=== PATIENT | male | born 2000 | race Two or more races ===

== ENCOUNTER 2023-10-27 13:20 | Outpatient (REF) | payer OTHER, SELFPAY ==
--- NOTE | ~2023-10-27 | MR_ITS ---
EXAMINATION: MR SHOULDER WITHOUT CONTRAST, RIGHT CLINICAL INFORMATION: Shoulder pain, injury. COMPARISON: None available. TECHNIQUE: MRI of the shoulder without contrast was performed on a high-field scanner. FINDINGS: ROTATOR CUFF: Supraspinatus, infraspinatus, teres minor are intact. Possible mild distal subscapularis tendinosis. No transverse tear or retraction. No muscle atrophy or fatty infiltration. BICEPS: Normal. CORACOACROMIAL ARCH: The undersurface of the acromion is curved with no subacromial spur. Mild acromioclavicular arthritis. LABRUM/CAPSULE: Increased T2 signal in the posterior labrum, consistent with a labral tear. Intermediate signal in the superior labrum, with linear configuration, which could reflect a tear; however, this is not definitive. GLENOHUMERAL JOINT/MARROW: No fracture. No aggressive marrow replacing lesion. Small joint fluid. Mild strandy signal changes in the rotator interval, could reflect mild synovitis. MR/MR shoulder RT wo con IMPRESSION: 1. Possible mild distal subscapularis tendinosis. No evidence of rotator cuff tear. 2. Posterior labral tear. Possible superior labral tear. 3. Mild acromioclavicular arthritis. 4. Possible mild synovitis in the rotator interval.
== END 2023-10-27 13:21 | disposition home or self-care (01) ==
LOC: HO.MRI 13:20
PROVIDERS: PCP Family Medicine Sports Medicine; Visit Provider Family Medicine Sports Medicine
DX: M25.511 Pain in right shoulder (principal)
CPT/HCPCS: 73221